=== PATIENT | female | born 1985 | race African-American/Black ===

== ENCOUNTER 2016-09-18 01:55 | Emergency (ER) | payer OTHER ==
[~2016-09-18] VITALS: Ht 172.7 cm; Wt 183.1 kg
[~2016-09-18 01:55] MED LIST: ADIPEX-P37.5 M1 PO; BENADRYL25 MG PO; BENADRYL50 MG PO; CIPRO500 MG PO; CYMBALTA PO; DEPO-LUPRON; DIAZEPAM5 MG PO; DILAUDID2 MG PO; FETZIMA40 MG PO; FIORICET WI1 CAPSULE PO; FLONASE16 G1 BOTH NARES; HYDROCODON-ACE1 EAC8 PO; INDOCIN25 MG PO; LOPRESSOR50 MG PO; LORAZEPAM1 MG PO; MACROBID100 MG PO; METOPROLOL TART50 MG PO; MINIPRESS2 MG PO; MOBIC15 MG PO; MOTRIN800 MG PO; NAPROSYN500 MG PO; NAPROXEN500 MG PO; NOHOMEMEDS; ORTHO TRI-CYCL1 EACH PO; PERCOCET 5/31 TABLET PO; PREDNISONE10 M1 PO; PROMETHAZINE HC25 M1 PO; PROVERA,CYCRIN10 MG PO; PROVERA,CYCRIN5 MG PO; PROZAC20 MG PO; PYRIDIUM100 MG PO; SYNTHROID75 MCG PO; SYNTHROID88 MCG PO; TORADOL10 MG PO; TRAMADOL HCL50 MG PO; TRAZODONE HCL50 MG PO; ULTRAM50 MG PO; VALIUM5 MG PO; VICODIN ES 7.51 EAC1 PO; VICODIN ES 71 TABLET PO; VICODIN,LORT1 TABLET PO; YAZ 28 TABLET1 EACH PO; ZOFRAN ODT8 MG PO
[2016-09-18 02:14] LABS: ADD MIUA? YES; BILIRUBIN NEGATIVE; BLOOD NEGATIVE; COLOR YELLOW ((YELLOW)); GLUCOSE (STRIP) NEGATIVE; KETONES NEGATIVE; LEUKOCYTES NEGATIVE; NITRITE NEGATIVE; PROTEIN (STRIP) NEGATIVE; SPECIFIC GRAVITY 1.022 (1.000-1.030)
[2016-09-18 02:28] LABS: HEMATOCRIT 36.9 % (36.0-46.0); MCH 26.5 PG (29.0-34.0); MCHC 32.8 G/DL (30.0-36.0); MCV 80.9 FL (83-99); MEAN PLAT.VOLUME 10.7 uM^3 (9.5-12.4); PLATELET COUNT 235 K/uL (156-360); RBC DIS.WIDTH-CV 14.7 % (11.8-14.6); RED BLOOD COUNT 4.56 M/uL (3.80-5.20)
[2016-09-18 02:30] LABS: BACTERIA 3+; CASTS NONE SEEN /LPF; CRYSTALS NONE SEEN; EPITHELIAL CELLS 2+; MUCUS 1+; RED BLOOD CELLS NONE SEEN /HPF (0-5); UCUL ADDED? NO; WHITE BLOOD CELLS 0-5 /HPF (0-5)
[2016-09-18 02:37] LABS: CHLORIDE 104 mEq/L (99-109); POTASSIUM 3.8 mEq/L (3.7-5.4); SODIUM 139 mEq/L (136-147)
[2016-09-18 02:40] LABS: GLUCOSE 99 mg/dL (70-99)
[2016-09-18 02:41] LABS: ANION GAP 8 MEQ/L (2-14)
[2016-09-18 02:42] LABS: TOTAL BILIRUBIN 0.7 mg/dL (0.0-1.0)
[2016-09-18 02:43] LABS: ALKALINE PHOSPHATASE 112 IU/L (3-129); GFR ESTIMATE (CALCULATED) > 59 mL/min/
[2016-09-18 02:44] LABS: UREA NITROGEN (BUN) 12 mg/dL (9-23)
[2016-09-18 02:47] LABS: LIPASE 20 U/L (1.0-51.0)
[2016-09-18 02:52] LABS: QUANTITATIVE HCG < 4.0 MIU/ML
[2016-09-18] MEDS ORDERED: BENTYL10 MG PO (04:05)
[2016-09-18] MEDS ORDERED: COLACE100 MG PO (04:05)
[2016-09-18 04:20] VITALS: BP 114/67
[2016-09-18 12:37] LABS: CHLAMYDIA TRACHOMATIS NEGATIVE; NEISSERIA GONORRHOEAE NEGATIVE
== END 2016-09-18 04:20 | disposition home or self-care (01) ==
LOC: EME 01:55
DX: R10.9 Unspecified abdominal pain (principal); E03.9 Hypothyroidism, unspecified; I10 Essential (primary) hypertension
CPT/HCPCS: 74176; 80053; 81003; 83690; 84702; 85027; 87491; 87591; 99281; 99284; J1885

== ENCOUNTER 2017-01-04 12:06 | Emergency (ER) | payer OTHER ==
[~2017-01-04] VITALS: Ht 172.7 cm; Wt 181.1 kg
[~2017-01-04 12:06] MED LIST changes: +BENTYL10 MG PO; +COLACE100 MG PO; +HYDROCODON-ACE1 EAC9 PO; +LEVOTHYROXINE100 MCG PO; +TRAZODONE HCL100 MG PO; +TRAZODONE HCL300 MG PO
[2017-01-04 15:20] VITALS: BP 121/89
== END 2017-01-04 15:21 | disposition home or self-care (01) ==
LOC: EME 12:06 → EXP 12:06
DX: M54.2 Cervicalgia (principal); S09.90XA Unspecified injury of head, initial encounter; R51 Headache; Y04.8XXA Assault by other bodily force, initial encounter; Y99.0 Civilian activity done for income or pay; Y92.481 Parking lot as the place of occurrence of the external cause; Z88.2 Allergy status to sulfonamides; Z88.1 Allergy status to other antibiotic agents; Z88.6 Allergy status to analgesic agent
CPT/HCPCS: 72040; 99281; 99284

== ENCOUNTER → 2017-03-06 | Outpatient (CLI) | payer OTHER ==
[~2017-03-06] VITALS: Ht 172.7 cm; Wt 178.1 kg
[~2017-03-06] MED LIST changes: +PHENTERMINE HCL30 MG PO
== END | disposition home or self-care (01) ==
LOC: AMB 12-14 11:00
DX: K29.70 Gastritis, unspecified, without bleeding (principal); K21.9 Gastro-esophageal reflux disease without esophagitis; R19.4 Change in bowel habit; R10.32 Left lower quadrant pain; E03.9 Hypothyroidism, unspecified; F41.8 Other specified anxiety disorders; Z88.0 Allergy status to penicillin
CPT/HCPCS: J2250; J3010

== ENCOUNTER 2017-04-18 11:05 | Emergency (ER) | payer OTHER ==
[~2017-04-18] VITALS: Ht 172.7 cm; Wt 175.5 kg
[2017-04-18 11:42] LABS: HEMATOCRIT 38.2 % (36.0-46.0); MCH 26.8 PG (29.0-34.0); MCHC 32.5 G/DL (30.0-36.0); MCV 82.5 FL (83-99); MEAN PLAT.VOLUME 10.9 uM^3 (9.5-12.4); NRBC (%) 0.2 /100 WBC (0-0); PLATELET COUNT 201 K/uL (156-360); RBC DIS.WIDTH-CV 14.4 % (11.8-14.6); RBC DIS.WIDTH-SD 43.2 % (39-53); RED BLOOD COUNT 4.63 M/uL (3.80-5.20); WHITE BLOOD COUNT 15.7 K/uL (4.1-10.2)
[2017-04-18 11:55] LABS: CHLORIDE 102 mEq/L (99-109); POTASSIUM 3.5 mEq/L (3.7-5.4); SODIUM 139 mEq/L (136-147)
[2017-04-18 11:58] LABS: GLUCOSE 112 mg/dL (70-99)
[2017-04-18 11:59] LABS: ANION GAP 11 MEQ/L (2-14)
[2017-04-18 12:00] LABS: TOTAL BILIRUBIN 1.9 mg/dL (0.0-1.0)
[2017-04-18 12:01] LABS: ALKALINE PHOSPHATASE 127 IU/L (3-129); GFR ESTIMATE (CALCULATED) > 59 mL/min/
[2017-04-18 12:02] LABS: UREA NITROGEN (BUN) 10 mg/dL (9-23)
[2017-04-18 12:10] LABS: QUANTITATIVE HCG < 4.0 MIU/ML
[2017-04-18] MEDS ORDERED: FLUCONAZOLE150 MG PO (12:47)
[2017-04-18 13:53] LABS: ADD MIUA? YES; BILIRUBIN NEGATIVE; BLOOD NEGATIVE; COLOR AMBER ((YELLOW)); GLUCOSE (STRIP) NEGATIVE; KETONES NEGATIVE; LEUKOCYTES TRACE; NITRITE POSITIVE; PROTEIN (STRIP) 30; SPECIFIC GRAVITY 1.023 (1.000-1.030)
[2017-04-18 14:01] LABS: BACTERIA 3+ /HPF; EPITHELIAL CELLS 1+ /HPF; MUCUS 4+ /LPF; RED BLOOD CELLS 0-5 /HPF (0-5); UCUL ADDED? YES; WHITE BLOOD CELLS 40-50 /HPF (0-5)
[2017-04-18] MEDS ORDERED: LEVAQUIN750 MG PO (15:07)
[2017-04-18] MEDS ORDERED: FIORICET,ESG1 TABLET PO (15:07)
[2017-04-18] MEDS ORDERED: LEVAQUIN500 MG PO (15:09)
[2017-04-18 15:30] VITALS: BP 115/74
== END 2017-04-18 15:30 | disposition home or self-care (01) ==
LOC: EME 11:05
DX: G43.909 Migraine, unspecified, not intractable, without status migrainosus (principal); N39.0 Urinary tract infection, site not specified; E03.9 Hypothyroidism, unspecified; F32.9 Major depressive disorder, single episode, unspecified; F41.9 Anxiety disorder, unspecified; Z87.442 Personal history of urinary calculi; Z88.0 Allergy status to penicillin
CPT/HCPCS: 70450; 80053; 81003; 84702; 85027; 87077; 87086; 87186; 99281; 99285; J0780; J1885; J7030

== ENCOUNTER 2017-04-20 13:07 | Emergency (ER) | payer OTHER ==
[~2017-04-20] VITALS: Ht 172.7 cm; Wt 174.4 kg
[~2017-04-20 13:07] MED LIST changes: +FIORICET,ESG1 TABLET PO; +FLUCONAZOLE150 MG PO; +LEVAQUIN500 MG PO; +LEVAQUIN750 MG PO
[2017-04-20 13:55] LABS: HEMATOCRIT 39.1 % (36.0-46.0); MCH 26.6 PG (29.0-34.0); MCHC 32.2 G/DL (30.0-36.0); MCV 82.7 FL (83-99); MEAN PLAT.VOLUME 10.7 uM^3 (9.5-12.4); PLATELET COUNT 251 K/uL (156-360); RBC DIS.WIDTH-CV 14.1 % (11.8-14.6); RBC DIS.WIDTH-SD 42.5 % (39-53); RED BLOOD COUNT 4.73 M/uL (3.80-5.20); WHITE BLOOD COUNT 9.5 K/uL (4.1-10.2)
[2017-04-20 14:04] LABS: CHLORIDE 104 mEq/L (99-109); POTASSIUM 3.6 mEq/L (3.7-5.4); SODIUM 139 mEq/L (136-147)
[2017-04-20 14:06] LABS: GLUCOSE 95 mg/dL (70-99)
[2017-04-20 14:07] LABS: ANION GAP 8 MEQ/L (2-14)
[2017-04-20 14:10] LABS: GFR ESTIMATE (CALCULATED) > 59 mL/min/
[2017-04-20 14:11] LABS: UREA NITROGEN (BUN) 8 mg/dL (9-23)
[2017-04-20] MEDS ORDERED: MOTRIN800 MG PO (15:27)
[2017-04-20] MEDS ORDERED: CLEOCIN300 MG PO (15:29)
[2017-04-20 15:40] VITALS: BP 129/77
== END 2017-04-20 15:41 | disposition home or self-care (01) ==
LOC: EME 13:07
PROVIDERS: Nurse Practitioner Family
DX: L03.115 Cellulitis of right lower limb (principal); E03.9 Hypothyroidism, unspecified; Z87.442 Personal history of urinary calculi
CPT/HCPCS: 80048; 85027; 93971; 99281; 99283; Q0169

== ENCOUNTER 2017-08-12 12:26 | Emergency (ER) | payer OTHER ==
[~2017-08-12] VITALS: Ht 175.3 cm; Wt 183.6 kg
[~2017-08-12 12:26] MED LIST changes: +CLEOCIN300 MG PO; +PHENTERMINE H37.5 MG PO
[2017-08-12] MEDS ORDERED: INDOCIN50 MG PO (13:17)
[2017-08-12] MEDS ORDERED: LIDODERM 5% P1 PATCH TD (13:17)
[2017-08-12 13:51] VITALS: BP 138/72
== END 2017-08-12 13:51 | disposition home or self-care (01) ==
LOC: EME 12:26
DX: S16.1XXA Strain of muscle, fascia and tendon at neck level, initial encounter (principal); M54.5 Low back pain; G89.29 Other chronic pain; M54.12 Radiculopathy, cervical region; X50.0XXA Overexertion from strenuous movement or load, initial encounter; M41.9 Scoliosis, unspecified; E66.01 Morbid (severe) obesity due to excess calories; Z88.0 Allergy status to penicillin; Z88.2 Allergy status to sulfonamides; Z88.8 Allergy status to other drugs, medicaments and biological substances
CPT/HCPCS: 99281; 99284

== ENCOUNTER 2017-11-05 10:18 | Emergency (ER) | payer OTHER ==
[~2017-11-05] VITALS: Ht 170.2 cm; Wt 179.8 kg
[~2017-11-05 10:18] MED LIST changes: +INDOCIN50 MG PO; +LIDODERM 5% P1 PATCH TD
[2017-11-05] MEDS ORDERED: CLEOCIN150 MG PO (12:15)
[2017-11-05] MEDS ORDERED: CLEOCIN300 MG PO (12:15)
[2017-11-05 12:29] VITALS: BP 148/75
== END 2017-11-05 12:29 | disposition home or self-care (01) ==
LOC: EME 10:18
DX: L03.115 Cellulitis of right lower limb (principal); M20.11 Hallux valgus (acquired), right foot; F43.10 Post-traumatic stress disorder, unspecified; F31.9 Bipolar disorder, unspecified; F41.9 Anxiety disorder, unspecified; Z88.2 Allergy status to sulfonamides; Z88.0 Allergy status to penicillin
CPT/HCPCS: 73630; 99281; 99284

== ENCOUNTER 2017-12-10 11:52 | Emergency (ER) | payer OTHER ==
[~2017-12-10] VITALS: Ht 170.2 cm; Wt 178.8 kg
[~2017-12-10 11:52] MED LIST changes: +CLEOCIN150 MG PO
[2017-12-10 12:44] LABS: HEMATOCRIT 38.3 % (36.0-46.0); HEMOGLOBIN 12.9 G/DL (11.9-15.5); MCH 28.2 PG (29.0-34.0); MCHC 33.7 G/DL (30.0-36.0); MCV 83.8 FL (83-99); PLATELET COUNT 237 K/uL (156-360); RBC DIS.WIDTH-CV 13.8 % (11.8-14.6); RBC DIS.WIDTH-SD 41.8 % (39-53); RED BLOOD COUNT 4.57 M/uL (3.80-5.20)
[2017-12-10 12:56] LABS: CHLORIDE 107 mEq/L (99-109); POTASSIUM 3.4 mEq/L (3.7-5.4); SODIUM 144 mEq/L (136-147)
[2017-12-10 12:58] LABS: GLUCOSE 95 mg/dL (70-99)
[2017-12-10 13:01] LABS: CREATININE 0.7 mg/dL (0.6-1.3); GFR ESTIMATE (CALCULATED) > 59 mL/min/
[2017-12-10 13:02] LABS: UREA NITROGEN (BUN) 14 mg/dL (9-23)
[2017-12-10 13:06] LABS: TROP-I INTERPRETATION NEGATIVE; TROPONIN-I < 0.01 ng/mL (0.0-0.30)
[2017-12-10] MEDS ORDERED: ZYRTEC10 M3 PO (13:27)
[2017-12-10 14:12] VITALS: BP 145/78
== END 2017-12-10 14:19 | disposition home or self-care (01) ==
LOC: EME 11:52
DX: R07.9 Chest pain, unspecified (principal); R06.02 Shortness of breath; R53.1 Weakness; J30.2 Other seasonal allergic rhinitis; E03.9 Hypothyroidism, unspecified; F31.9 Bipolar disorder, unspecified; F32.9 Major depressive disorder, single episode, unspecified; F41.9 Anxiety disorder, unspecified; Z87.442 Personal history of urinary calculi; Z90.49 Acquired absence of other specified parts of digestive tract; Z90.710 Acquired absence of both cervix and uterus; Z88.2 Allergy status to sulfonamides; Z88.0 Allergy status to penicillin; Z88.6 Allergy status to analgesic agent; Z88.5 Allergy status to narcotic agent; Z88.1 Allergy status to other antibiotic agents; Z88.8 Allergy status to other drugs, medicaments and biological substances
CPT/HCPCS: 71046; 80048; 84484; 85027; 93005; 94640; 99281; 99285

== ENCOUNTER 2018-03-13 10:54 | Emergency (ER) | payer OTHER ==
[~2018-03-13] VITALS: Ht 170.2 cm; Wt 182.8 kg
[~2018-03-13 10:54] MED LIST changes: +ZYRTEC10 M3 PO
[2018-03-13] MEDS ORDERED: LIDODERM 5% P1 PATCH TD (11:56)
[2018-03-13] MEDS ORDERED: VALIUM5 MG PO (11:57)
[2018-03-13 12:33] VITALS: BP 130/66
== END 2018-03-13 12:35 | disposition home or self-care (01) ==
LOC: EME 10:54
DX: S29.012A Strain of muscle and tendon of back wall of thorax, initial encounter (principal); M62.830 Muscle spasm of back; X50.9XXA Other and unspecified overexertion or strenuous movements or postures, initial encounter; Y93.F2 Activity, caregiving, lifting; Y99.0 Civilian activity done for income or pay; Z88.0 Allergy status to penicillin; Z88.2 Allergy status to sulfonamides; Z88.5 Allergy status to narcotic agent; Z88.6 Allergy status to analgesic agent; Z88.1 Allergy status to other antibiotic agents; Z88.8 Allergy status to other drugs, medicaments and biological substances
CPT/HCPCS: 99281; 99284; J1885